=== PATIENT | female | born 1985 | race Caucasian/White ===

== ENCOUNTER 2018-07-27 08:15 | Emergency (ER) | payer BC ==
[~2018-07-27] VITALS: Ht 157.5 cm; Wt 78.0 kg
[2018-07-27] MEDS ORDERED: KETOROLAC 60MG/2ML VIAL IM ONE (10:30)
[2018-07-27 10:40] VITALS: BP 128/89
== END 2018-07-27 10:42 | disposition home or self-care (01) ==
LOC: ER 08:15
DX: M54.42 Lumbago with sciatica, left side (principal)
CPT/HCPCS: 81025; 96372; 99283; J1885

== ENCOUNTER → 2018-08-18 | Outpatient (CLI) | payer BC | END | disposition home or self-care (01) | LOC: MRI 07:28 | PROVIDERS: ATTEND Family Medicine | DX: S89.92XA Unspecified injury of left lower leg, initial encounter (principal); X58.XXXA Exposure to other specified factors, initial encounter; Y93.89 Activity, other specified; Y92.89 Other specified places as the place of occurrence of the external cause; Y99.8 Other external cause status | CPT/HCPCS: 73721 ==